=== PATIENT | female | born 1965 | race African-American/Black ===

== ENCOUNTER 2025-09-15 06:36 | Inpatient (IN) | payer OTHER ==
[~2025-09-15] VITALS: Ht 165.1 cm; Wt 86.3 kg
[~2025-09-15 06:36] MED LIST: PARO-162 PO
[2025-09-15 06:42] VITALS: O2SAT 99
[2025-09-15 08:01] LABS: BASOPHILS % 3.6 % (0.0-2.0); EOSINOPHILS % 2.6 % (0.0-5.0); HEMATOCRIT. 43.6 % (36.0-48.0); HEMOGLOBIN. 13.4 g/dL (12.0-16.0); LYMPHOCYTES % 44.6 % (20.0-50.0); MEAN PLATELET VOLUME 10.9 fl (7.4-10.4); MONOCYTES % 9.0 % (2.0-8.0); NEUTROPHILS % 40.2 % (40.0-76.0); PLATELET 196 x1000/uL (130-400); RED BLOOD CELL COUNT 5.39 mill/uL (4.2-5.4); RED CELL DISTRIBUTION WIDTH 18.0 % (11.6-14.6)
[2025-09-15] MEDS: PIPERACILLIN/TAZO 3.375G/50ML 50 ML IV ONE (08:04)
[2025-09-15] MEDS: SODIUM CHLORIDE 0.9% (SEPSIS BOLUS) IV ONE (08:04)
[2025-09-15 08:12] LABS: INR 1.1
[2025-09-15 08:16] LABS: CREATININE 2.0 mg/dL (0.6-1.0); UREA NITROGEN BLOOD 28.0 mg/dL (9-23)
[2025-09-15 08:17] LABS: TROPONIN I HIGH SENSITIVITY 16 ng/L (3.0-34)
[2025-09-15 08:19] LABS: ASPARTATE AMINOTRANSFERASE 27 IU/L (<34); BILIRUBIN DIRECT < 0.1 mg/dL (<=3.0); BILIRUBIN TOTAL 0.3 mg/dL (0.1-1.0); PROTEIN TOTAL 6.2 g/dL (6.0-8.3)
[2025-09-15] MEDS: VANCOMYCIN 1G PREMIX 200 ML IV ONE (09:47)
[2025-09-15] MEDS ORDERED: MAGNESIUM/ALUMINUM HYDROXIDE/SIMETHICONE 30ML UDC PO PRN (10:00)
[2025-09-15] MEDS ORDERED: MORPHINE SULFATE 2 MG/ML INJ (NOT FOR IM USE) IV PRN (10:00)
[2025-09-15] MEDS ORDERED: ONDANSETRON HCL 4MG/2ML INJ IV PRN (10:00)
[2025-09-15] MEDS ORDERED: CLONIDINE 0.1MG TABLET PO PRN (10:00)
[2025-09-15] MEDS ORDERED: HYDROCODONE/ACETAMINOPHEN 5/325MG TABLET PO PRN (10:00)
[2025-09-15] MEDS: ENOXAPARIN 40MG/0.4ML SYR SUBCUT SCH (10:00)
[2025-09-15] MEDS: PANTOPRAZOLE SODIUM 40 MG/VIAL IV SCH (10:00)
[2025-09-15] MEDS ORDERED: VANCOMYCIN 1G PREMIX 200 ML IV NR (10:15)
[2025-09-15] MEDS ORDERED: NALOXONE HCL 0.4MG/ML VIAL IV PRN (10:15)
[2025-09-15 15:30] VITALS: BP 150/71; PULSE 98; RESP 18; TEMP 35.9; TEMP 36.2512; O2SAT 99
[2025-09-15] MEDS ORDERED: VANCOMYCIN 1GM PMX (XELLIA) 200 ML IV NR (16:00)
[2025-09-15 18:00] VITALS: BP 135/68; PULSE 100; RESP 18; TEMP 36.2; O2SAT 100
[2025-09-15] MEDS: SODIUM CHLORIDE 0.9% 1,000 ML IV SCH (18:00)
[2025-09-15] MEDS ORDERED: ZOLPIDEM TARTRATE 5MG TABLET PO PRN (21:00)
[2025-09-15] MEDS: ACETAMINOPHEN 325MG TABLET PO PRN (21:40)
[2025-09-15] MEDS: VANCOMYCIN 1GM PMX (XELLIA) 200 ML IV NR (21:41)
[2025-09-15] MEDS: PIPERACILLIN/TAZO 3.375G/50ML 50 ML IV SCH (21:42)
[2025-09-16] VITALS: BP 128/79; PULSE 98; RESP 18; TEMP 37.1; O2SAT 99
[2025-09-16 04:00] VITALS: BP 139/78; PULSE 98; RESP 18; TEMP 36.4; O2SAT 100
[2025-09-16 08:13] VITALS: BP 167/77; PULSE 94; RESP 20; TEMP 36.2; O2SAT 95
[2025-09-16] MEDS: PIPERACILLIN/TAZO 3.375G/50ML 50 ML IV SCH (09:00)
[2025-09-16] MEDS ORDERED: POTA-354 PO (09:56)
[2025-09-16] MEDS ORDERED: MEGE40TA5 MT (10:04)
[2025-09-16] MEDS ORDERED: LISI40TA21 PO (10:04)
[2025-09-16] MEDS ORDERED: ZANU80CA (10:04)
[2025-09-16 11:37] VITALS: BP 143/81; PULSE 99; RESP 19; TEMP 36; O2SAT 100
[2025-09-16 12:34] LABS: BASOPHILS % 0.9 % (0.0-2.0); EOSINOPHILS % 4.8 % (0.0-5.0); HEMATOCRIT. 39.9 % (36.0-48.0); HEMOGLOBIN. 12.1 g/dL (12.0-16.0); LYMPHOCYTES % 45.5 % (20.0-50.0); MEAN PLATELET VOLUME 10.9 fl (7.4-10.4); MONOCYTES % 12.3 % (2.0-8.0); NEUTROPHILS % 36.5 % (40.0-76.0); PLATELET 176 x1000/uL (130-400); RED BLOOD CELL COUNT 4.75 mill/uL (4.2-5.4); RED CELL DISTRIBUTION WIDTH 18.0 % (11.6-14.6)
[2025-09-16 12:56] LABS: CREATININE 1.7 mg/dL (0.6-1.0); UREA NITROGEN BLOOD 14.0 mg/dL (9-23)
[2025-09-16] MEDS ORDERED: VANCOMYCIN 1.25GM/250ML IV SCH (15:00)
== END 2025-09-16 15:02 | disposition left against medical advice (07) | DRG 872 ==
LOC: ER 06:41 → CANBEDREQ 08:58 → 7WST 08:58 → ENRESERV 13:00
PROVIDERS: ADMIT Internal Medicine; ATTEND Internal Medicine
DX: A41.9 Sepsis, unspecified organism (principal); E87.20 Acidosis, unspecified; C95.90 Leukemia, unspecified not having achieved remission; N17.9 Acute kidney failure, unspecified; R65.20 Severe sepsis without septic shock; I10 Essential (primary) hypertension; F32.A Depression, unspecified; Z53.21 Procedure and treatment not carried out due to patient leaving prior to being seen by health care provider; Z92.21 Personal history of antineoplastic chemotherapy; Z98.51 Tubal ligation status
CPT/HCPCS: 36415; 71045; 80048; 80076; 80202; 83605; 84145; 84484; 85025; 93005; 96365; 96367; 99291; J1650; J2470; J2543; J3373; J7030